=== PATIENT | male | born 1950 | race Caucasian/White ===

== ENCOUNTER → 2019-12-20 | Outpatient (CLI) | payer OTHER ==
[~2019-12-20] MED LIST: ASPI325T8 PO; ATOR40TA59 PO; BENA1TAB42 PO; BUPIVACAINE MPF 0.25% 10 ML VIAL. ONE; BUPR100T8 PO; BUSP5TAB PO; CALC500T54 PO; CHOL500021 PO; DOXA4TAB3 PO; GABA600T7 PO; INDO25CA21 PO; LIDOCAINE 1% PF 30 ML VIAL. ONE; METO25TA4 PO; MULT-245 PO; NALO0.4D2 IJ; OMEG1CAP50 PO; RASA1TAB2 PO; SILD100T PO; TADA5TAB PO; TIZA4TAB2 PO; TRAM50TA PO; TRAZ-125 PO
[2019-12-20 10:54] VITALS: BP 126/77
== END | disposition home or self-care (01) ==
LOC: SURG 10:13
PROVIDERS: ATTEND Anesthesiology
DX: M47.816 Spondylosis without myelopathy or radiculopathy, lumbar region (principal); M47.812 Spondylosis without myelopathy or radiculopathy, cervical region; M54.5 Low back pain; M19.012 Primary osteoarthritis, left shoulder; M79.10 Myalgia, unspecified site; Z79.899 Other long term (current) drug therapy; Z98.890 Other specified postprocedural states; Z96.659 Presence of unspecified artificial knee joint
CPT/HCPCS: 64493; 64494; J2001; J3490; 64495

== ENCOUNTER → 2020-01-03 | Outpatient (CLI) | payer OTHER ==
[2020-01-03 11:31] VITALS: BP 115/58
== END | disposition home or self-care (01) ==
LOC: SURG 10:16
PROVIDERS: ATTEND Anesthesiology
DX: M47.816 Spondylosis without myelopathy or radiculopathy, lumbar region (principal); Z98.890 Other specified postprocedural states
CPT/HCPCS: 64493; 64494; J2001; J3490